=== PATIENT | male | born 1995 | race Caucasian/White ===

== ENCOUNTER 2025-02-15 09:04 | Emergency (ER) | payer BC, SELFPAY ==
[2025-02-15 09:07] VITALS: BP 170/94
--- NOTE | 2025-02-15 09:26 | ED.GENMED ---
History of Present Illness
General
Chief Complaint: Fever
Source: patient
Exam Limitations: none
Time Seen by Provider: 02/15/25 09:18
Nursing documentation reviewed up to this point in time: agreed with
History of Present Illness
History of Present Illness:
29-year-old male with no reported chronic medical issues presents to the ER for evaluation of productive cough and fever. Patient reports that he had COVID at the end of November, cough never really resolved but rest of symptoms generally improved
after a week or 2. He says that cough persisted over the next 2 months and then he started to have URI symptoms again around and cough became productive at that point of brown mucus and he has had productive cough since. He says he
saw his primary care physician, noted to have significant wheezing with cough and was prescribed prednisone and an inhaler�he completed this course of medication but symptoms never improved. Last night started to have fever and chills with a
temperature of 102 �F and he took some Tylenol, woke up early this morning with higher fever of 105 �F, took Tylenol again at 8:30 AM and came to the ER to be evaluated. Currently main complaints are productive cough, wheezing, fatigue/myalgias.
Denies chest pain or shortness of breath. He denies any GI symptoms such as vomiting or diarrhea. Denies other acute complaints.
Review of Systems
Review of Systems
All Other Systems: ROS reviewed and negative except as documented in HPI and ROS
Constitutional: Reports fever, fatigue and chills
EENT: Reports runny nose; Denies sore throat
Respiratory: Reports cough; Denies trouble breathing
Cardiac: Denies chest pain
ABD/GI: Denies abdominal pain, nausea, vomiting or diarrhea
: Denies flank pain
Musculoskeletal: Reports muscle pain; Denies neck pain or back pain
Neurological: Denies dizzy or headache
Phy Exam
Physical Exam
Physical Exam:
General: Awake, alert, oriented x3; no acute distress
Head: Normocephalic, atraumatic
Eyes: Conjunctiva normal
Throat: Airway intact, handling secretions
Neck: Trachea midline, supple without meningismus
Lungs: No hypoxia the patient has some mild resting tachypnea; no signs of accessory muscle use/respiratory distress and is speaking in full sentences; frequently coughing throughout assessment; on lung auscultation he has faint wheezing at the lung
bases left slightly more pronounced than right
Heart: Tachycardia with regular rhythm, no murmurs, gallops, or rubs
Abd: Soft, non distended, nontender
Neuro: Grossly intact
Skin: Warm and dry
Extremities: No edema in extremities, equal pulses in all extremities
Scores
Heart Failure Risk
Heart Failure Risk Score: Not Applicable
Heart Score for Chest Pain Patients
STEMI patient?: Not applicable
Withdrawal Assessment of Alcohol
Withdrawal Assessment Completed?: Not applicable
Sepsis
Sepsis Screening
Sepsis Assessment: Sepsis Ruled Out
Sepsis Screen
Sepsis Screen: Sepsis Ruled Out
Date: 02/15/25
Time: 10:53
Course
Orders/Labs/Results
Orders:
Orders
02/15/25 09:19
CR Chest - 2 Views Urgent
Comment:
Reason For Exam: cough, fever
02/15/25 09:25
0.9% Sodium Chloride 1000 ml [Nss] 1,000 ml IV BOLUS
Ibuprofen [Motrin] 400 mg PO NOW STA
02/15/25 09:28
COVID-19 Antigen Urgent
Source: Nasal Swab
Complete Blood Count/With Diff Urgent
Comprehensive Metabolic Panel Urgent
Influenza A+B Rapid Molecular Urgent
JULIA Source: Nasal Swab
Specimen Description:
02/15/25 09:49
Amoxicillin 875 mg/Clav 125 mg [Augmentin 875 mg/125 mg] 1 tablet PO NOW STA
Doxycycline [Vibramycin] 100 mg PO NOW STA
Abnormal Lab Results
02/15/25
09:28
MCV 79.8 L fL
(80.0-94.0)
Abs Immat Gran (auto) 0.1 H 10^3/uL
(0-0.05)
Absolute Lymphs (auto) 0.5 L 10^3/uL
(1.2-3.4)
Absolute Monos (auto) 1.1 H 10^3/uL
(0.1-0.6)
Immature Gran % 0.7 H %
(0-0.5)
Neutrophils % 76.1 H %
(42.2-75.2)
Lymphocytes % 6.4 L %
(20.5-51.1)
Monocytes % 13.5 H %
(1.7-9.3)
Carbon Dioxide 21 L mmol/L
(22-30)
Glucose 105 H mg/dl
(70-99)
02/15/25 09:28
02/15/25 09:28
Vital Signs
Initial and Last Documented VS:
Initial Vital Signs
Temp Pulse Resp BP Pulse Ox
37.2 C 121 22 170/94 95
02/15/25 09:07 02/15/25 09:07 02/15/25 09:07 02/15/25 09:07 02/15/25 09:07
Last Documented Vital Signs
Temp Pulse Resp BP Pulse Ox
37.2 C 99 16 120/80 97
02/15/25 09:07 02/15/25 09:32 02/15/25 10:00 02/15/25 09:32 02/15/25 09:32
MDM/Problems Addressed
Differential Diagnosis Includes:
Pneumonia, bronchitis, URI/postnasal drip, GERD, asthma
MDM/Problems Addressed:
29-year-old male presents to the ER for evaluation of persistent cough now more productive and associated with high fevers. Recently completed a course of prednisone with inhaler but this did not help his symptoms, developed fever over the past 24
hours. Hypertensive, tachycardic with mild tachypnea here but no fever here after taking Tylenol at home. No hypoxia. Physical exam as noted. Plan to check basic labs, chest x-ray, viral swabs. Ibuprofen to maintain fever control, can provide
some fluids. Reassess after the above.
Labs reviewed: CBC shows no leukocytosis but predominant neutrophils. Chemistry no clinically significant abnormalities. COVID-negative but influenza is positive. Chest x-ray reviewed by me question left perihilar opacity and this is the area of
more pronounced wheezing in the lung and given this finding in concert with productive cough we will plan to cover for pneumonia although suspect symptoms primarily due to influenza. Spoke to patient about prescription for Tamiflu given onset of
fevers yesterday and questionable benefit given duration of cough/URI symptoms�he requested prescription. His vital signs are stable, heart rate improved with fluids and ibuprofen. Think he is stable for discharge can follow-up on an outpatient
basis with his primary doctor. Spoke about supportive care, follow-up plan and return precautions. All questions answered.
*Radiology
Radiology exam reviewed: preliminary read by ED provider
*Pulse Oximetry
SaO2: 95
Oxygen Mode of Delivery: Room air
Patient hypoxic: no (95%)
*Critical Care Note
Total Time (30-74mins, 75-104mins- exclusive of procedures): Not Applicable
Data Reviewed
Source: patient
ED Attending Note
-
Portions of this chart may have been created with voice recognition software.� Occasional wrong word or��sound alike� substitutions may have occurred due to the inherent limitations of voice recognition software.
Discharge Plan
Departure
Patient Disposition: Home (Routine Discharge)
Date of Disposition: 02/15/25
Time of Disposition: 10:18
Patient with high blood pressure during this ER visit?: No
Discharge Problem:
Pneumonia, Influenza
Instructions: Pneumonia in adults, Flu in adults (DC)
Prescriptions:
New
oseltamivir [Tamiflu] 75 mg capsule
75 mg PO BID 5 Days Qty: 10 0RF
amoxicillin-pot clavulanate 875-125 mg tablet
1 tab PO BID Qty: 14 0RF
doxycycline hyclate 100 mg capsule
100 mg PO BID Qty: 14 0RF
Referrals:
NONE,* [Family Provider, Internal Medicine]
Activity Restrictions/Additional Instructions:
You should take Tylenol and ibuprofen to help manage her fevers; you can take them at the following doses:
Ibuprofen 400 mg every 6 hours
Tylenol 650 mg every 6 hour
Can be helpful to alternate these medications every 3 hours for the first few days of your illness to help keep fevers under good control.
Thank you for visiting the Emergency Department at [facility].
1. Please schedule a follow up appointment as directed. Call first thing tomorrow morning to make an appointment.
2. If indicated, please take your medications as instructed and indicated on discharge paperwork.
3. If any of your symptoms do not improve, or persist, or become more severe within 6-12 hours, please return to the emergency department for further care.
4. Please return to the emergency department if you develop a headache, neck pain/stiffness, fever greater than 100.4F, chest pain, shortness of breath, persistent nausea, vomiting, slurred speech, difficulty walking, numbness/tingling, weakness,
signs of infection or any other symptoms that are worrisome to you.
Please call [phone] if you have any questions.
Interventions
Interventions:
*Risk Screen - Suicide Last Done: 02/15/25 09:07
*General Assessment Last Done: 02/15/25 09:07
*Neglect/Abuse Screening Last Done: 02/15/25 09:07
*ED COVID-19 Vaccine History Last Done: 02/15/25 09:22
*ED Influenza Vaccine History Last Done: 02/15/25 09:22
[facility] Fall Risk Assessment Tool Last Done: 02/15/25 09:22
ED- Neurological Assessment Last Done: 02/15/25 09:22
ED-Skin Assessment Last Done: 02/15/25 09:22
Discharge Date and Time
Print Language: FRISIAN
[2025-02-15 09:32] VITALS: BP 120/80
[2025-02-15] MEDS: MOTRIN 400 MG PO (09:32)
[2025-02-15] MEDS: NSS 1000 IV (09:32)
[2025-02-15 09:34] LABS: Hematocrit 44.7 % (39.0-52.0); Hemoglobin 15.4 g/dL (13.0-18.0); Mean Corp Hgb Conc. 34.5 g/dL (33.0-37.0); Mean Corpuscular Volume 79.8 fL (80.0-94.0); Nucleated Red Blood Cells % 0 % (-); Platelet Count 190 10^3/uL (130-400); Red Cell Dist. Width 12.2 % (11.5-14.5)
[2025-02-15 09:47] LABS: ALT (SGPT) 17 U/L (0-50); AST (SGOT) 23 U/L (17-59); Albumin 4.7 g/dl (3.5-5.0); Alkaline Phosphatase 81 U/L (38-126); Blood Urea Nitrogen 10 mg/dl (9-20); Calcium 9.5 mg/dl (8.4-10.2); Carbon Dioxide 21 mmol/L (22-30); Chloride 105 mmol/L (98-107); Glucose 105 mg/dl (70-99); Potassium 4.1 mmol/L (3.5-5.1); Sodium 135 mmol/L (135-145); Total Protein 7.8 g/dl (6.3-8.2); eGFR > 60.00
[2025-02-15] MEDS: VIBRAMYCIN 100 MG PO (09:58)
[2025-02-15] MEDS: AUGMENTIN 875 MG/125 MG 1 TABLET PO (09:58)
[2025-02-15 10:09] LABS: COVID-19 Antigen Negative (Negative)
== END 2025-02-15 11:12 | disposition home or self-care (01) ==
LOC: EMR 09:04
PROVIDERS: EMERGENCY PHYSICIAN Emergency Medicine
DX: J10.00 Influenza due to other identified influenza virus with unspecified type of pneumonia (principal); Z86.16 Personal history of COVID-19
CPT/HCPCS: 99284; 96360; 71046; 80053; 85025; 87502; 87811